=== PATIENT | female | born 1940 | race Caucasian/White ===

== ENCOUNTER → 2018-08-12 | Outpatient (CLI) | payer OTHER | LOC: BRMIMAGING 15:05 | PROVIDERS: ATTEND Obstetrics & Gynecology | DX: Z12.31 Encounter for screening mammogram for malignant neoplasm of breast (principal) ==

== ENCOUNTER → 2018-09-20 | Outpatient (CLI) | payer OTHER | LOC: BHCLAF 14:45 | PROVIDERS: ATTEND Internal Medicine Interventional Cardiology | DX: R53.83 Other fatigue (principal) | CPT/HCPCS: 93306-PO ==

== ENCOUNTER → 2019-02-20 | Outpatient (CLI) | payer OTHER | LOC: BRMIMAGING 14:15 | PROVIDERS: ATTEND Internal Medicine Rheumatology | DX: Z13.820 Encounter for screening for osteoporosis (principal); M81.0 Age-related osteoporosis without current pathological fracture; M85.88 Other specified disorders of bone density and structure, other site ==

== ENCOUNTER → 2019-03-31 | Outpatient (CLI) | payer OTHER | LOC: CIMAGING 13:38 | PROVIDERS: ATTEND Physical Medicine & Rehabilitation | DX: S32.591D Other specified fracture of right pubis, subsequent encounter for fracture with routine healing (principal) | CPT/HCPCS: 72192-PO ==